=== PATIENT | female | born 1945 | race Two or more races ===

== ENCOUNTER 2018-03-23 10:05 | Outpatient (CLI) | payer MEDICARE, OTHER ==
[~2018-03-23] VITALS: Ht 157.5 cm; Wt 53.5 kg
[~2018-03-23 10:05] MED LIST: AMARYL1 MG PO; ATIVAN1 MG PO; CEPHALEXIN500 MG PO; COZAAR25 MG PO; GLUCOPHAGE500 MG PO; IBUPROFEN600 MG PO; PAROXETINE HCL10 MG PO; SIMVASTATIN10 MG PO; TYLENOL #31 TAB PO
[2018-03-23] MEDS ORDERED: DM med (11:01)
[2018-03-23 11:02] VITALS: BP 114/62
--- NOTE | 2018-03-23 11:10 | GI Initial Consult Note ---
History of Present Illness General Date patient seen: Mar 23, 2018 Time patient seen: 11:04 Referring physician: KIA KAT Reason for Consultation: Colonoscopy Present Illness HPI 72 year old female patient referred by Dr. Kat for evaluation of L sided abdominal pain. In addition, the patient has complaint of abdominal bloating, incontinence, weight loss and excessive gas production. Denies any N/V/D. States her BM is regular. She had a colonoscopy approximately 7 years ago in 2010, unsure of results but with possible ?colitis. No signs of abuse or neglect. Patient is not fall risk. Home Meds Reported Medications [DM med] No Conflict Check 03/23/18 Glimepiride* (AMARYL*) 1 Mg Tablet, 1 MG PO ACBREAKFAST, #10 TAB Take 1 tablet by mouth every day before breakfast. 08/02/12 Losartan Potassium* (COZAAR*) 25 Mg Tablet, 25 MG PO Q12H, #20 TAB Take 1 tablet by mouth every 12 hours. 08/02/12 Simvastatin (ZOCOR) 10 Mg Tablet, 10 MG PO QHS 08/02/12 Metformin Hcl* (GLUCOPHAGE*) 500 Mg Tablet, 500 MG PO BID, #20 TAB Take one tablet by mouth twice a day 08/02/12 Discontinued Reported Medications Lorazepam* (ATIVAN*) 1 Mg Tablet, 1 MG PO HS, #10 TAB Take 1 tablet by mouth at bed time as needed for anxiety. 08/02/12 Paroxetine Hcl* (PAXIL*) 10 Mg Tablet, 10 MG PO DAILY 08/02/12 Discontinued Scripts Acetaminophen/Codeine 300MG/30MG* (TYLENOL #3*) 1 Tab Tab, 2 TAB PO Q6H, #15 TAB Take 2 tablets by mouth every 4 hours as needed for pain. Prov:ADELINA STRONG P.A. 08/04/12 Cephalexin* (KEFLEX*) 500 Mg Capsule, 500 MG PO Q6H, #28 CAP Take one capsule every 6 hours for 7 days Prov:ADELINA STRONG P.A. 08/04/12 Ibuprofen* (MOTRIN*) 600 Mg Tablet, 600 MG PO TID, #10 TAB Take 1 tablet by mouth three times a day as needed for pain. Prov:Vibha Caceres DO 08/02/12 Med list reviewed/reconciled: Yes Allergies: Coded Allergies: PENICILLINS (Verified Allergy, 08/02/12) Patient History History Provided By: Patient, Medical Record PMH Narrative HLD DM proteinuria Past Surgical History: Bladder lift Pertinent Family History: none Social History: Reports: other - tea; Denies: smoking, alcohol use, drug use Review of Systems All Other Systems: negative except mentioned in HPI Physical Exam Vital Signs Date Time Temp Pulse Resp B/P (MAP) Pulse Ox O2 Delivery O2 Flow Rate FiO2 03/23/18 11:02 97.7 79 18 114/62 97 97.7 Sp02 EP Interpretation: reviewed, normal General Appearance: well appearing, no apparent distress, alert Head: normocephalic EENT: PERRL/EOMI, normal ENT inspection Neck: supple Respiratory: normal breath sounds, no respiratory distress Cardiovascular: normal rate Gastrointestinal: normal inspection, non tender, soft, normal bowel sounds, non -distended Rectal: deferred Genitourinary: no CVA tenderness Musculoskeletal: normal inspection, back normal Neurologic: normal inspection, alert, oriented x3, responsive Psychiatric: normal inspection, judgement/insight normal, memory normal Skin: normal inspection, normal color, no rash, warm/dry, palpation normal, well hydrated Lymphatic: normal inspection, no adenopathy GI: Plan Problems: (1) HLD (hyperlipidemia) (2) Diabetes mellitus (3) Proteinuria (4) Colonoscopy planned Plan EGD/colonoscopy scheduled 03/31/18. - CLD & (Nulytely/Suprep/Movi-Prep) prep instructions given and acknowledged by patient. - NPO @ IA day prior procedure explained. Seen with Dr. Weller. Thank you for this patient referral. The patient was seen and examined at bedside and all new and available data was reviewed in the patients chart. I agree with the above findings, impression and plan. (Patient seen earlier today. Signature stamp does not reflect patient encounter time.). - MD Sharee Shen,[facility] MOLD Mar 23, 2018 11:10
== END 2018-03-23 12:05 | disposition home or self-care (01) ==
LOC: PAN 10:05
DX: R10.9 Unspecified abdominal pain (principal); E78.5 Hyperlipidemia, unspecified; E11.9 Type 2 diabetes mellitus without complications; R80.9 Proteinuria, unspecified; R63.4 Abnormal weight loss
CPT/HCPCS: 99201

== ENCOUNTER 2018-03-31 08:06 | Day surgery (SDC) | payer MEDICARE, OTHER ==
[~2018-03-31] VITALS: Ht 154.9 cm; Wt 52.2 kg
[2018-03-31] VITALS (8 sets, daily range): BP systolic 108–129; BP diastolic 61–71
[~2018-03-31 08:06] MED LIST changes: +DM med
[2018-03-31] MEDS ORDERED: DiphenhydrAMINE 50mg/ml Inj IVP PRN (08:30)
[2018-03-31] MEDS ORDERED: Atropine Inj 1mg/10ml Syr IV PRN (08:30)
[2018-03-31] MEDS ORDERED: Labetalol 5mg/ml 20ml vial IV PRN (08:30)
[2018-03-31] MEDS ORDERED: Midazolam 2mg/2ml Inj IVP PRN (08:30)
[2018-03-31] MEDS ORDERED: fentaNYL 100 mcg/2 mL IV PRN (08:30)
--- NOTE | 2018-03-31 08:33 | Anethesia Preoperative Eval ---
Anesthesia Pre-op PMH/ROS General Date of Evaluation: Mar 31, 2018 Time of Evaluation: 08:31 Anesthesiologist: glenna ASA Score: ASA 3 Mallampati Score Class I : Soft palate, uvula, fauces, pillars visible Class II: Soft palate, uvula, fauces visible Class III: Soft palate, base of uvula visible Class IV: Only hard plate visible Mallampati Classification: Class II Surgeon: kulwinder Diagnosis: abdominal pain, colon screening Surgical Procedure: colonoscopy Anesthesia History: none Social History: smoking - nonsmoker Family History: no anesthesia problems Allergies: Coded Allergies: PENICILLINS (Verified Allergy, 08/02/12) Medications: see eMAR Past Medical History Cardiovascular: Reports: HTN, other - hypercholesterolemia Neurologic/Psychiatric: Reports: depression/anxiety Endocrine: Reports: DM Musculoskeletal/Integumentary: Reports: OA Anesthesia Pre-op Phys. Exam Physician Exam Last Vital Signs Date Time Temp Pulse Resp B/P (MAP) Pulse Ox O2 Delivery O2 Flow Rate FiO2 03/31/18 08:43 97.2 72 20 122/62 (82) 98 97.2 03/31/18 08:39 Room Air Constitutional: NAD Neurologic: CN 2-12 intact Cardiovascular: RRR Respiratory: CTA Gastrointestinal: S/NT/ND Airway Exam Mallampati Score: Class II MO: limited Neck: supple TMD: 2fb ROM: limited Anesthesia Pre-op A/P Studies Pre-op Studies: EKG - nsr, lad Risk Assessment & Plan Assessment: asa3 Plan: mac Status Change Before Surgery: No Pre-Antibiotics Drug: Lea Zhu MD Mar 31, 2018 08:33
[2018-03-31] MEDS ORDERED: FOLIC ACID1 MG ORAL (08:36)
--- NOTE | 2018-03-31 09:05 | Pre-Procedure Note/Attestation ---
Pre-Procedure Note/Attestation Complete Prior to Procedure Planned Procedure: not applicable Procedure Narrative: esophagogastroduodenoscopy and colonoscopy Indications for Procedure Pre-Operative Diagnosis: screening colon,GERD Attestation I attest that I discussed the nature of the procedure; its benefits; risks and complications; and alternatives (and the risks and benefits of such alternatives ), prior to the procedure, with the patient (or the patient's legal visitor services representative). I attest that, if there was a reasonable possibility of needing a blood transfusion, the patient (or the patient's legal visitor services representative) was given the [facility] standardized written summary, pursuant to the [place] Blood Safety Act ([place] Health and Safety Code # 1645, as amended). I attest that I re-evaluated the patient just prior to the surgery and that there has been no change in the patient's H&P, except as documented below: Horace Weller MD Mar 31, 2018 09:05
--- NOTE | 2018-03-31 09:05 | Short Stay Surgery H&P ---
History of Present Illness History of Present Illness Chief Complaint see recent office consult note HPI Shi Gray is a 72 year old female who was admitted on for Abdominal Pain, Colon Screening Patient History Allergies: Coded Allergies: PENICILLINS (Verified Allergy, 08/02/12) Medication History Scheduled Folic Acid* (Folic Acid*), 1 MG ORAL DAILY, (Reported) Glimepiride* (Amaryl*), 1 MG PO ACBREAKFAST, (Reported) Losartan Potassium* (Cozaar*), 25 MG PO Q12H, (Reported) Metformin Hcl* (Glucophage*), 500 MG PO BID, (Reported) Simvastatin (Zocor), 10 MG PO QHS, (Reported) Miscellaneous Medications [DM med], (Reported) Physical Exam Vital Signs Last Vital Signs Date Time Temp Pulse Resp B/P (MAP) Pulse Ox O2 Delivery O2 Flow Rate FiO2 03/31/18 08:43 97.2 72 20 122/62 (82) 98 97.2 03/31/18 08:39 Room Air Plan Attestation Are the patient's medical conditions optimized for surgery? Horace Weller MD Mar 31, 2018 09:05
--- NOTE | 2018-03-31 09:19 | Endoscopy Procedure Note ---
Endoscopy Procedure Note General Indication for Procedure: h/o colon polyps, GERD Procedures Performed: EGD, colonoscopy Operative Findings/Diagnosis: 3 polyps Specimen: yes Pt Tolerated Procedure Well: Yes Estimated Blood Loss: none Anesthesia Anesthesiologist: autumn Anesthesia: MAC Inserted Devices Implant(s) used?: No Quality Quality of Bowel Preparation: Good Did scope reach the cecum?: Yes Was there any complications?: No GI Core Measures 50 yrs or older w/o bx or poly: No 10yrs. F/U not recommended: Yes 10 yrs. F/U needed: Yes 18 years or older w/prev. colo: Yes <3yrs. since last colonoscopy: Yes Med reason:<3 yrs.: Piecemeal removal-Adenoma Horace Weller MD Mar 31, 2018 09:19
[2018-03-31] MEDS ORDERED: Lidocaine 1% MPF 10mg/ml 5ml ONE (09:30)
[2018-03-31] MEDS ORDERED: Propofol 200mg/20ml IV ONE (09:30)
--- NOTE | 2018-03-31 10:22 | Endoscopy Procedure Note ---
Endoscopy Procedure Note General Indication for Procedure: screening colon, GERD Procedures Performed: EGD, colonoscopy Operative Findings/Diagnosis: gastritis, 2 polyps Specimen: yes Pt Tolerated Procedure Well: Yes Estimated Blood Loss: none Anesthesia Anesthesiologist: autumn Anesthesia: MAC Inserted Devices Implant(s) used?: No Quality Quality of Bowel Preparation: Good Did scope reach the cecum?: Yes Was there any complications?: No GI Core Measures 50 yrs or older w/o bx or poly: No 10yrs. F/U not recommended: Yes If not recommended, why?: Above average risk 10 yrs. F/U needed: Yes 18 years or older w/prev. colo: No Horace Weller MD Mar 31, 2018 10:22
--- NOTE | 2018-03-31 10:41 | Immediate Post-Op Evaluation ---
Immediate Post-Op Evalulation Immediate Post-Op Evalulation Procedure: egd/colonoscopy/bx Date of Evaluation: Mar 31, 2018 Time of Evaluation: 10:34 IV Fluids: 400ml 0.9ns Blood Products: none Estimated Blood Loss: neglgigble Blood Pressure Systolic: 111 Blood Pressure Diastolic: 66 Pulse Rate: 77 Respiratory Rate: 18 O2 Sat by Pulse Oximetry: 100 Temperature (Fahrenheit): 97.6 Pain Score (1-10): 0 Nausea: No Vomiting: No Complications none Patient Status: awake, reacts, patent Hydration Status: adequate Drug: Lea Zhu MD Mar 31, 2018 10:41
--- NOTE | 2018-03-31 10:43 | 48 Hour Post Anesthesia Eval ---
Post Anesthesia Evaluation Procedure: egd/colonoscopy/bx Date of Evaluation: Mar 31, 2018 Time of Evaluation: 10:41 Blood Pressure Systolic: 115 0: 80 Pulse Rate: 75 Respiratory Rate: 18 Temperature (Fahrenheit): 97.6 O2 Sat by Pulse Oximetry: 100 Airway: patent Nausea: No Vomiting: No Pain Intensity: 0 Hydration Status: adequate Cardiopulmonary Status: stable Mental Status/LOC: patient returned to baseline Post-Anesthesia Complications: none Follow-up care needed: N/A Lea Gu MD Mar 31, 2018 10:43
--- NOTE | 2018-03-31 16:15 | Procedure Note ---
DATE OF PROCEDURE: 03/31/2018 PROCEDURE: Upper endoscopy with biopsy and colonoscopy with biopsy. ANESTHESIA: Per Dr. Sinha. INSTRUMENT: Olympus adult flexible upper endoscope and colonoscope. INDICATION: Screening colonoscopy, evaluation of abdominal pain, GERD. The procedure, risks, benefits, and possible consequences, including hemorrhage, aspiration, perforation and infection, and alternative treatments, were explained to the patient/legal guardian by Dr. Horace Weller and the patient/legal guardian understood and accepted these risks. DESCRIPTION OF PROCEDURE: After informed consent was obtained and the patient was adequately sedated, Olympus upper endoscope was advanced from mouth into the second portion of the duodenum and retroflexion was performed in the stomach. The patient has diffuse gastritis. Random biopsy from antrum and body was obtained to rule out H. pylori infection. Otherwise, the rest of her upper endoscopic examination grossly looked within normal limits. At this time, the upper endoscope was retrieved and the patient was turned over for colonoscopy. First, rectal exam performed, which was positive for internal hemorrhoids. Then, the scope was advanced from rectum into the cecum documented by appendix orifice, ileocecal valve, and right upper quadrant palpation. Quality of prep overall was very good. The patient had two diminutive polyp in transverse colon, removed with the cold biopsy forceps technique. The rest of the examination grossly within normal limits. Retroflexion of rectum showed evidence of internal hemorrhoids. SUMMARY OF FINDINGS: 1. Gastritis, status post biopsy. 2. Two colonic polyps removed. See above for details. 3. Internal hemorrhoids. RECOMMENDATIONS: Follow up biopsies and treat accordingly. Horace Weller M.D. DR: OLY JOB#: [id number] CC:
--- NOTE | 2018-04-01 17:17 | Cardiology Report ---
APPROVED REPORT EKG Measurement Heart [id number] ND [id number] Normal sinus rhythm Left axis deviation Abnormal ECG
== END 2018-03-31 11:40 | disposition home or self-care (01) ==
LOC: GAS 08:06
DX: Z12.11 Encounter for screening for malignant neoplasm of colon (principal); D12.3 Benign neoplasm of transverse colon; K64.8 Other hemorrhoids; K29.50 Unspecified chronic gastritis without bleeding; I25.10 Atherosclerotic heart disease of native coronary artery without angina pectoris; I10 Essential (primary) hypertension; E11.9 Type 2 diabetes mellitus without complications; Z79.84 Long term (current) use of oral hypoglycemic drugs; F41.9 Anxiety disorder, unspecified; F32.9 Major depressive disorder, single episode, unspecified; M19.90 Unspecified osteoarthritis, unspecified site
CPT/HCPCS: 43239; 45380; 82962; 93005; J2704; 94003; 94150

== ENCOUNTER 2018-04-22 09:49 | Outpatient (CLI) | payer MEDICARE, OTHER ==
[~2018-04-22 09:49] MED LIST changes: +FOLIC ACID1 MG ORAL
--- NOTE | 2018-04-22 10:06 | General Progress Note ---
Assessment/Plan Problem List: (1) HP neg gastritis (2) Colon polyps ICD Codes: K63.5 - Polyp of colon SNOMED: 55043043 (3) SIBO (4) Diabetes mellitus ICD Codes: E11.9 - Type 2 diabetes mellitus without complications SNOMED: 49767684 (5) Proteinuria ICD Codes: R80.9 - Proteinuria, unspecified SNOMED: 93195525 (6) HLD (hyperlipidemia) ICD Codes: E78.5 - Hyperlipidemia, unspecified SNOMED: 66271397 Assessment/Plan repeat colon in 5 years Xifaxan trial RTC 2 months Subjective ROS Limited/Unobtainable: Yes Allergies: Coded Allergies: PENICILLINS (Verified Allergy, 08/02/12) Subjective c/o bloading Objective General Appearance: alert EENT: normal ENT inspection Neck: supple Cardiovascular: normal rate Respiratory/Chest: decreased breath sounds Abdomen: normal bowel sounds, non tender, soft Extremities: non-tender Horace Weller MD Apr 22, 2018 10:06
[2018-04-22 10:17] VITALS: BP 126/58
== END 2018-04-22 10:22 | disposition home or self-care (01) ==
LOC: PAN 09:49
DX: K63.5 Polyp of colon (principal); K29.70 Gastritis, unspecified, without bleeding; E11.9 Type 2 diabetes mellitus without complications; R80.9 Proteinuria, unspecified; E78.5 Hyperlipidemia, unspecified; Z88.0 Allergy status to penicillin